=== PATIENT | female | born 1960 | race African-American/Black ===

== ENCOUNTER 2023-02-14 17:49 | Emergency (ER) | payer OTHER ==
[~2023-02-14] VITALS: Ht 170.2 cm; Wt 57.0 kg
[2023-02-14 17:54] VITALS: O2SAT 98
[2023-02-14] MEDS: KETOROLAC 60MG/2ML VIAL IM ONE (20:16)
[2023-02-14] MEDS: KETOROLAC 60MG/2ML VIAL IM NR (20:26)
[2023-02-14] MEDS: MORPHINE SULFATE 4 MG/ML CPJ (NOT FOR IM USE) IV STA (22:02)
[2023-02-14] MEDS: ONDANSETRON HCL 4MG/2ML INJ IV STA (22:02)
[2023-02-14] MEDS: HYDROCODONE/ACETAMINOPHEN 5/325MG TABLET PO ONE (22:03)
[2023-02-14] MEDS: HYDROCODONE/ACETAMINOPHEN 5/325MG TABLET PO NR (22:03)
[2023-02-14 23:37] LABS: PARTIAL THROMBOPLASTIN TIME 28.4 sec (23.4-31.0); PROTHROMBIN TIME 10.8 sec (9.6-11.0)
[2023-02-14 23:40] LABS: CHLORIDE 109 mEq/L (98-107); INDEX HEMOLYSI 1 (1-3); INDEX ICTERIC 1 (1-4); INDEX LIPEMIC 1 (1-3); POTASSIUM 3.6 mEq/L (3.5-5.1); SODIUM 136 mEq/L (136-145)
[2023-02-14 23:41] LABS: BASOPHILS % 0.2 % (0.0-2.0); EOSINOPHILS % 0.3 % (0.0-5.0); HEMATOCRIT. 38.4 % (36.0-48.0); HEMOGLOBIN. 12.6 g/dL (12.0-16.0); LYMPHOCYTES % 10.6 % (20.0-50.0); MEAN CORPUSCULAR HEMOGLOBIN 31.8 pg (28.0-32.0); MEAN CORPUSCULAR HGB CONC 32.9 g/dL (31.0-37.0); MEAN CORPUSCULAR VOLUME 96.7 fL (81.0-99.0); MEAN PLATELET VOLUME 8.5 fl (7.4-10.4); MONOCYTES % 3.5 % (2.0-8.0); NEUTROPHILS % 85.4 % (40.0-76.0); PLATELET 265 x1000/uL (130-400); RED BLOOD CELL COUNT 3.97 mill/uL (4.2-5.4); RED CELL DISTRIBUTION WIDTH 13.7 % (11.6-14.6); WHITE BLOOD COUNT 11.9 x1000/uL (4.5-11.0)
[2023-02-14 23:48] LABS: ALANINE AMINOTRANSFERASE 37 IU/L (13-61); ALBUMIN 3.8 g/dL (3.4-5.0); ASPARTATE AMINOTRANSFERASE 28 IU/L (15-37); BILIRUBIN TOTAL 0.4 mg/dL (0.1-1.0); CALCIUM 8.9 mg/dL (8.5-10.1); CARBON DIOXIDE 25 mEq/L (21-32); CREATININE 0.8 mg/dL (0.6-1.3); GLUCOSE 134 mg/dL (70-105); PROTEIN TOTAL 7.2 g/dL (6.0-8.3); UREA NITROGEN BLOOD 8 mg/dL (7-21)
[2023-02-14] MEDS: SODIUM CHLORIDE 0.9% 1,000 ML IV ONE (23:50)
[2023-02-15] MEDS: HYDROCODONE/ACETAMINOPHEN 7.5/325MG TABLET PO ONE (02:59)
[2023-02-15 04:45] VITALS: BP 135/62; PULSE 57; RESP 12; TEMP 98.4
== END 2023-02-15 04:50 | disposition short-term general hospital (02) ==
LOC: ER 17:49
DX: S32.9XXA Fracture of unspecified parts of lumbosacral spine and pelvis, initial encounter for closed fracture (principal); I10 Essential (primary) hypertension; V49.9XXA Car occupant (driver) (passenger) injured in unspecified traffic accident, initial encounter; Y93.89 Activity, other specified; Y92.89 Other specified places as the place of occurrence of the external cause; Y99.8 Other external cause status
CPT/HCPCS: 99285; 96374; 72192; 71046; 96361; 96375; 80053; 85025; 85610; 85730; 86850; 86900; 86901; 36415; 73502; 73552; 73030; 93005; 96372; J1885; J2405; J2270; J7030